=== PATIENT | female | born 1940 | race Hispanic/Latino ===

== ENCOUNTER 2016-12-07 11:05 | Outpatient (CLI) | payer MEDICARE, OTHER ==
--- NOTE | 2016-12-07 11:39 | RAD ---
CHEST TWO VIEWS: History: Dyspnea. Comparison: 03-05-13 FINDINGS: Stable atherosclerosis. Persistent hyperinflation with chronic changes. No pneumothorax. Diffuse bon y demineralization is identified. IMPRESSION: Chronic changes. POS: [facility]
== END 2016-12-07 11:06 | disposition home or self-care (01) ==
LOC: RAD 11:05
PROVIDERS: ATTEND Internal Medicine Pulmonary Disease
DX: R06.00 Dyspnea, unspecified (principal)
CPT/HCPCS: 71020

== ENCOUNTER 2017-02-27 08:00 | Outpatient (CLI) | payer MEDICARE, OTHER | END 2017-02-27 08:01 | disposition home or self-care (01) | LOC: BICMAMMO 08:00 | PROVIDERS: ATTEND Internal Medicine Hematology & Oncology | DX: N63.20 Unspecified lump in the left breast, unspecified quadrant (principal); Z85.3 Personal history of malignant neoplasm of breast | CPT/HCPCS: 77066; G0279 ==

== ENCOUNTER 2017-12-14 13:51 | Emergency (ER) | payer MEDICARE, OTHER ==
--- NOTE | 2017-12-14 15:27 | RAD ---
3 VIEWS SACRUM AND COCCYX: Date: 12/14/17 COMPARISON: None. HISTORY: Fall, trauma, pain. FINDINGS: There is no widening of the sacroiliac joints or the pubic symphysis. There is no displaced fracture or evidence of dislocation. There is atherosclerotic calcification of the abdominal aorta. IMPRESSION: No acute osseous abnormality seen. POS: [facility]
== END 2017-12-14 15:09 | disposition home or self-care (01) ==
LOC: ERS 13:51
DX: M53.3 Sacrococcygeal disorders, not elsewhere classified (principal); E03.9 Hypothyroidism, unspecified; I48.91 Unspecified atrial fibrillation; E11.9 Type 2 diabetes mellitus without complications; E78.5 Hyperlipidemia, unspecified; J45.909 Unspecified asthma, uncomplicated; Z87.891 Personal history of nicotine dependence
CPT/HCPCS: 72220; 93005

== ENCOUNTER 2017-12-27 06:58 | Emergency (ER) | payer MEDICARE, OTHER ==
[2017-12-27 08:09] LABS: #Eosinphils 0.1 thou/uL (0.0-0.7); #Lymphocytes 0.9 thou/uL (1.20-3.40); #Monocytes 0.6 thou/uL (0.11-0.59); #Neutrophils 4.9 thou/uL (1.40-6.50); %Basophils 0.6 % (0.0-1.0); %Eosinophils 2.1 % (0.0-10.0); %Lymphocytes 13.8 % (21.0-51.0); %Monocytes 9.5 % (0.0-10.0); Hemoglobin 10.2 g/dL (12.0-16.0); Mean Corpuscular Hemoglobin 30.2 pg (27.0-31.0); Mean Corpuscular Volume 94.4 fL (78.0-98.0); Mean Platelet Volume 7.6 fL (7.4-10.4); Platelet Count 318 thou/uL (130-400); RBC Distribution Width 15.1 % (11.5-14.5); Red Blood Cell (RBC) Count 3.37 mill/uL (4.20-5.40); White Blood Cell (WBC) Count 6.6 thou/uL (4.8-10.8)
[2017-12-27 08:16] LABS: ALT (SGPT) 16 U/L (8-55); AST (SGOT) 27 U/L (5-34); Albumin 3.4 g/dL (3.4-4.8); Alkaline Phosphatase 89 U/L (40-150); Anion Gap 15 mmol/L (10-20); BUN (Urea Nitrogen) 9 mg/dL (9.8-20.1); Bilirubin, Total 0.5 mg/dL (0.2-1.2); Calc. Creatinine Clearance 0 mL/min (70-130); Carbon Dioxide 23 mmol/L (23-31); Chloride 102 mmol/L (98-107); Estimated GFR-MDRD 87; Globulin 3.7 g/dL (2.4-3.5); Glucose 116 mg/dL (83-110); Potassium 3.7 mmol/L (3.5-5.1); Protein, Total 7.1 g/dL (6.0-8.3); Sodium 136 mmol/L (136-145)
[2017-12-27 08:28] LABS: CKMB 1.8 ng/mL (0-6.6); Troponin I Less than 0.010 ng/mL (< 0.028)
[2017-12-27 08:32] LABS: Bilirubin Negative (Negative); Blood, Urine Negative (Negative); Clarity CLOUDY (Clear); Glucose, Urine (Dipstick) Negative (Negative); Leukocyte Negative (Negative); Nitrite Negative (Negative); Protein, Urine (Dipstick) Negative (Neg-Trace); Urobilinogen 0.2 mg/dL (0.2-1.0)
[2017-12-27 08:36] LABS: Magnesium 1.7 mg/dL (1.6-2.6)
--- NOTE | 2017-12-27 08:46 | RAD ---
FRONTAL VIEW CHEST: Date: 12/27/17 INDICATION: Dyspnea. COMPARISON: 07/16/14 and 05/31/17. FINDINGS: Redemonstration of wedge-shaped opacity of the right hilar region. There are diffuse interstitial opa cities again seen, with hyperinflation of the lungs. Persistent pleural based densities are seen at t he inferior chest bilaterally. Cardiac silhouette is stable appearing. IMPRESSION: 1. Stable chest. 2. Persistent bilateral diffuse parenchymal opacities remain, which may represent chronic interstiti al lung disease/COPD. Superimposed acute component not excluded. There is persistence of a wedge-shap ed density of the right hilar region. A central lesion is not excluded. This may be further assessed with follow-up CT chest with contrast. CODE T. POS: [facility]
== END 2017-12-27 08:45 | disposition home or self-care (01) ==
LOC: ERS 06:58
DX: I48.91 Unspecified atrial fibrillation (principal); E03.9 Hypothyroidism, unspecified; E11.9 Type 2 diabetes mellitus without complications; E78.5 Hyperlipidemia, unspecified; I10 Essential (primary) hypertension; J45.909 Unspecified asthma, uncomplicated; Z87.891 Personal history of nicotine dependence
CPT/HCPCS: 36415; 71045; 80053; 81003; 82553; 83605; 83735; 84484; 85025; 93005

== ENCOUNTER 2017-12-29 23:41 | Emergency (ER) | payer MEDICARE, OTHER ==
[2017-12-30 01:07] LABS: #Eosinphils 0.2 thou/uL (0.0-0.7); #Lymphocytes 0.8 thou/uL (1.20-3.40); #Monocytes 0.7 thou/uL (0.11-0.59); #Neutrophils 4.4 thou/uL (1.40-6.50); %Basophils 0.6 % (0.0-1.0); %Eosinophils 2.9 % (0.0-10.0); %Lymphocytes 13.1 % (21.0-51.0); %Monocytes 11.7 % (0.0-10.0); %Neutrophils 71.7 % (42.0-75.0); Hemoglobin 9.8 g/dL (12.0-16.0); Mean Corpuscular HGB CONC 30.6 g/dL (32.0-36.0); Mean Corpuscular Hemoglobin 28.9 pg (27.0-31.0); Mean Corpuscular Volume 94.5 fL (78.0-98.0); Mean Platelet Volume 7.6 fL (7.4-10.4); Platelet Count 314 thou/uL (130-400); RBC Distribution Width 15.3 % (11.5-14.5); White Blood Cell (WBC) Count 6.1 thou/uL (4.8-10.8)
[2017-12-30 01:28] LABS: ALT (SGPT) 17 U/L (8-55); AST (SGOT) 27 U/L (5-34); Albumin 3.4 g/dL (3.4-4.8); Alkaline Phosphatase 81 U/L (40-150); Anion Gap 10 mmol/L (10-20); BUN (Urea Nitrogen) 12 mg/dL (9.8-20.1); Bilirubin, Total 0.2 mg/dL (0.2-1.2); Calc. Creatinine Clearance 0 mL/min (70-130); Calcium 8.8 mg/dL (7.8-10.44); Carbon Dioxide 30 mmol/L (23-31); Chloride 105 mmol/L (98-107); Estimated GFR-MDRD 85; Globulin 3.3 g/dL (2.4-3.5); Glucose 183 mg/dL (83-110); Potassium 4.2 mmol/L (3.5-5.1); Protein, Total 6.7 g/dL (6.0-8.3); Sodium 141 mmol/L (136-145)
[2017-12-30 01:32] LABS: CKMB 2.1 ng/mL (0-6.6); Troponin I Less than 0.010 ng/mL (< 0.028)
--- NOTE | 2017-12-30 07:42 | RAD ---
CHEST 1 VIEW: Date: HISTORY: Shortness of breath and dyspnea. COMPARISON: 12/27/17. FINDINGS: There is some volume loss in the right middle lobe. Air space opacities are present in left lower lob e. Mild blunting of left costophrenic sulcus. Heart size is enlarged. Lungs are hyperinflated. IMPRESSION: 1. Volume loss right middle lobe. Nonemergent CT of chest is recommended to evaluate for underlying mass. 2. Left basilar opacity and small effusion concerning for infection. POS: [facility]
== END 2017-12-30 03:04 | disposition home or self-care (01) ==
LOC: ERS 23:41
DX: R06.02 Shortness of breath (principal); J44.9 Chronic obstructive pulmonary disease, unspecified; E03.9 Hypothyroidism, unspecified; I48.91 Unspecified atrial fibrillation; E11.9 Type 2 diabetes mellitus without complications; E78.5 Hyperlipidemia, unspecified; I10 Essential (primary) hypertension; J45.909 Unspecified asthma, uncomplicated; Z87.891 Personal history of nicotine dependence
CPT/HCPCS: 36415; 71045; 80053; 82553; 84484; 85025; 93005; 94640; J7620

== ENCOUNTER 2018-01-08 10:33 | Outpatient (CLI) | payer MEDICARE, OTHER ==
[2018-01-08] MEDS ORDERED: Iopamidol 370 76% 100 ML VIAL ONE (11:01)
--- NOTE | 2018-01-08 14:09 | CT ---
POSTCONTRAST CHEST CT: HISTORY: Dyspnea. Productive cough. COPD. Status post chemotherapy. Previous lumpectomy. FINDINGS: CHEST CT: Enlarged right paratracheal lymph node measuring 1.6 x 1.2 cm. Enlarged precarinal lymph node measur ing 1.6 x 1.6 cm. Enlarged right hilar lymph node measuring 1.1 x 1.2 cm. No mediastinal hematoma. Heart size is within normal limits. No significant pericardial fluid. There are extensive coronary calcifications. Atherosclerosis of a nonaneurysmal aorta is identified. The gallbladder is surgically absent. The visualized upper solid organs are unremarkable. Small lef t-sided pleural effusion. There are patchy ground-glass opacities along with tree-in-bud opacities a nd ground-glass nodules scattered throughout the lung parenchyma. Findings are presumed to be on the basis of an atypical infection. There are areas of pleural-based opacities in the left upper lobe. Regional Safety Manager pleural-based opacity measures 0.8 x 2.9 cm. There is consolidation with air broncho grams involving the middle lobe and lingula. Findings may represent post treatment change. There ar e nodular opacities in the right lung measuring 0.7 x 1.0 cm, 0.5 x 0.6 cm, and a more ill-defined op acity in the right lung measuring 0.6 x 1.0 cm. . There appears to be mild thickening of the bronch i throughout the lung parenchyma. Correlate for any reactive change of the bronchi. Ill-defined opacity in the right lower lobe measuring j0.6 x 0.5 cm. No lytic or blastic lesions in the osseous structures IMPRESSION: 1. Diffuse nodular opacities along with ground-glass nodular opacities in the lung parenchym. Addit ional tree-in-bud opacities which may represent atypical infection. Findings favor atypical infectio n. Follow up imaging to resolution. 2. There appear to be chronic changes involving the middle lobe and lingula. POS: [facility]
== END 2018-01-08 10:34 | disposition home or self-care (01) ==
LOC: CT 10:33
PROVIDERS: ATTEND Internal Medicine
DX: R93.89 Abnormal findings on diagnostic imaging of other specified body structures (principal); R91.8 Other nonspecific abnormal finding of lung field
CPT/HCPCS: 71260

== ENCOUNTER 2018-01-23 02:13 | Inpatient (IN) | payer MEDICARE, OTHER ==
[2018-01-23 02:45] LABS: #Eosinphils 0.2 thou/uL (0.0-0.7); #Lymphocytes 0.8 thou/uL (1.20-3.40); #Monocytes 0.6 thou/uL (0.11-0.59); #Neutrophils 4.5 thou/uL (1.40-6.50); %Basophils 0.8 % (0.0-1.0); %Eosinophils 3.2 % (0.0-10.0); %Monocytes 10.4 % (0.0-10.0); %Neutrophils 72.6 % (42.0-75.0); Hemoglobin 11.2 g/dL (12.0-16.0); Mean Corpuscular HGB CONC 31.6 g/dL (32.0-36.0); Mean Corpuscular Hemoglobin 29.8 pg (27.0-31.0); Mean Corpuscular Volume 94.4 fL (78.0-98.0); Mean Platelet Volume 7.6 fL (7.4-10.4); Platelet Count 327 thou/uL (130-400); Red Blood Cell (RBC) Count 3.75 mill/uL (4.20-5.40); White Blood Cell (WBC) Count 6.2 thou/uL (4.8-10.8)
[2018-01-23] MEDS ORDERED: methylPREDNISolone Sod Succ/PF 125 MG/2 ML VIAL ONE (02:47)
[2018-01-23 03:08] LABS: ALT (SGPT) 28 U/L (8-55); AST (SGOT) 33 U/L (5-34); Albumin 3.3 g/dL (3.4-4.8); Alkaline Phosphatase 75 U/L (40-150); Anion Gap 8 mmol/L (10-20); BUN (Urea Nitrogen) 10 mg/dL (9.8-20.1); Bilirubin, Total 0.2 mg/dL (0.2-1.2); CK (CPK) 91 U/L (29-168); Calc. Creatinine Clearance 0 mL/min (70-130); Calcium 9.1 mg/dL (7.8-10.44); Carbon Dioxide 32 mmol/L (23-31); Chloride 102 mmol/L (98-107); Estimated GFR-MDRD 70; Globulin 3.3 g/dL (2.4-3.5); Glucose 130 mg/dL (83-110); Lipase 39 U/L (8-78); Protein, Total 6.6 g/dL (6.0-8.3); Sodium 138 mmol/L (136-145)
[2018-01-23 03:15] LABS: CKMB 3.1 ng/mL (0-6.6); Troponin I 0.023 ng/mL (< 0.028)
[2018-01-23] MEDS ORDERED: Azithromycin 500 MG VIAL ONE (03:51)
[2018-01-23] MEDS ORDERED: cefTRIAXone\\ROCEPHIN 1 GM VIAL ONE (03:51)
[2018-01-23] MEDS ORDERED: Magnesium 2 GM/50 ML BAG (IN WATER) ONE (05:27)
[2018-01-23 05:52] LABS: Actual Bicarbonate (HCO3a) 25.7 mEq/L (22-28); Analyzer IN Cardio ER; Base Excess (BEa) -0.1 mEq/L (-2.0 to +3.0); CO2 Tension 47.1 mmHg (35.0-45.0); Calcium, Ionized 1.15 mmol/L (1.12-1.30); Carboxyhemoglobin (COHb) 0.3 gm% (0.0-3.0); Hemoglobin (Hb) 10.7 g/dL (12.0-16.0); O2 Tension (PaO2) 78.4 mmHg (> 70.0); Potassium - ABG Lab 3.77 mmol/L (3.70-5.30); pH, Arterial 7.36 (7.35-7.45)
[2018-01-23 05:53] LABS: ALV-art Gradient 33.845 (0-20); Puncture Site RRA
[2018-01-23] MEDS ORDERED: Lorazepam 2 MG/ML VIAL ONE (07:22)
[2018-01-23] MEDS ORDERED: Acetaminophen 325 MG TAB PO PRN (07:24)
[2018-01-23] MEDS ORDERED: Ondansetron PF 4 MG/2 ML Vial IVP PRN (07:24)
--- NOTE | 2018-01-23 08:32 | RAD ---
SINGLE VIEW CHEST: Date: 01/23/18 COMPARISON: 12/30/17. HISTORY: Dyspnea. FINDINGS: Single view of the chest shows a normal sized cardiomediastinal silhouette with atherosclerotic calci fications in the aorta. Increased interstitial lung markings are present. Hyperexpansion of lungs may be secondary to COPD. No significant change has occurred compared to the prior examination. IMPRESSION: Stable examination. POS: [facility]
--- NOTE | 2018-01-23 08:46 | HP ---
PRIMARY CARE PROVIDER: Brooke Baca MD COMMERCIAL ADMINISTRATOR: Dain Chacon MD DRUG WORKER: Sony Dinero MD HISTORY OF PRESENT ILLNESS: The patient is referred to [email or web address] Service by [facility] for shortness of breath. The patient with a history of COPD, has been short of breath, recently it became suddenly worse. She denies any chest pain. No fever or chills. She was noted to have an abnormal chest x-ray. A CT done of the chest revealed what was probably an atypical infection. She was put on Zithromax, which she is currently on. She has some cough, some wheezing. She is being admitted. PAST MEDICAL HISTORY: COPD; atrial fibrillation, post ablation that was not successful; chronic anticoagulation; hypertension; dyslipidemia; hypothyroidism; breast cancer diagnosed in 2011, currently on no therapy. CURRENT MEDICATIONS: 1. Symbicort. 2. Ventolin inhaler q.4 hours p.r.n. 3. Zithromax 500 mg a day. 4. Atorvastatin 40 mg a day. 5. Levothyroxine 75 mcg a day. 6. Xarelto 20 mg once a day. 7. Losartan 100 mg a day. 8. Singulair 10 mg a day. ALLERGIES: ALLERGIC TO BACTRIM. PAST SURGICAL HISTORY: Lumpectomy of left breast, cholecystectomy, hysterectomy, and atrial fibrillation with unsuccessful ablation. SOCIAL HISTORY: Multiple members with diabetes and hypertension. She has a sister with carcinoma of the lung. SOCIAL HISTORY: . Full code status. No tobacco. No alcohol. The power of united states attorney was designated. REVIEW OF SYSTEMS: GENERAL: No fevers, sweats, chills, headaches, or dizziness. EYES: No double vision, blurred vision, or flashing of lights. EARS, NOSE, AND THROAT: No ear pain or drainage, nasal bleeding, or trouble swallowing. CARDIAC: No chest pain, orthopnea, or paroxysmal nocturnal dyspnea. RESPIRATORY: See present illness. GASTROINTESTINAL: No nausea, vomiting, abdominal pain, diarrhea, or constipation. GENITOURINARY: No hematuria, dysuria, or nocturia. MUSCULOSKELETAL: No pain or swelling in her arms or legs. NEUROLOGIC: No strokes, seizures, or focal weakness. PSYCHIATRIC: No anxiety or depression. SKIN: No bruising, bleeding, or rash. HEME/LYMPH: No tender or swollen lymph nodes in the axilla, inguinal, or cervical area. PHYSICAL EXAMINATION: GENERAL: She is alert, on BiPAP. Part of the history is given by family members because of the difficult with the BiPAP. VITAL SIGNS: Blood pressure 128/80, pulse 96, respirations 32, pulse ox 94% on BiPAP, temperature of 98.5. HEAD, EYES, EARS, NOSE, AND THROAT: Pupils are equal, round, and reactive to light. Extraocular movements are intact. Sclerae are white. Tympanic membranes are clear. Nose is clear. Oral mucous membranes are wet. NECK: Supple without jugular venous distention, adenopathy, or thyromegaly. CHEST: Has hyperresonance. Diminished breath sounds. Scattered rhonchi. HEART: Irregularly irregular rhythm. First and second heart sounds are variable. No murmurs. ABDOMEN: Soft. Bowel sounds are normal. There is no hepatosplenomegaly. No mass. No rebound. No bruits. EXTREMITIES: Reveal no cyanosis, clubbing, or edema. Pulses; carotid, radial, femoral, and dorsalis pedis pulses are palpable and symmetric. SKIN: Warm and dry without bruises or rash. HEME/LYMPH: No tender or swollen lymph nodes in the axilla, inguinal, or cervical area. NEUROLOGIC: Cranial nerves II through XII are intact. Moves all extremities. Sensation is intact. IMAGING STUDIES: Chest x-ray, hyperinflation, marked scaring. Review of this x-ray with old x-ray was performed. EKG, irregularly irregular rhythm. No acute ST-T abnormality. The patient is in atrial fibrillation reviewed. LABORATORY DATA: Blood gas; pH of 7.36, CO2 of 47, O2 of 78.4. D-dimer was normal. Comprehensive metabolic profile shows a CO2 of 32, blood pressure of 130, otherwise unremarkable. Troponin and BNP are normal, I do not know why they were done. CBC; white count 6.2, hemoglobin 11.2, and platelet count 327,000. ADMITTING DIAGNOSES: 1. Acute exacerbation of chronic obstructive pulmonary disease. 2. Acute on chronic respiratory failure with hypercapnia and hypoxemia. 3. Atypical pneumonia. 4. Atrial fibrillation. 5. Chronic anticoagulation. 6. Hypertension. 7. Dyslipidemia. 8. Hypothyroidism, on therapy. PLAN: Admit to [facility] on BiPAP. O2 to keep sat greater than 92%. Continue Zithromax for atypical pneumonia, nebulizers q.3 hours p.r.n. Continue Symbicort. We will probably substitute Dulera. Continue selected home medicines. Consult Dr. Chacon. Job ID: [id number]
[2018-01-23] MEDS ORDERED: Non-Formulary Item 1 EACH (Budesonide-Formoterol [Symbicort 160-4.5] 2 PUFF) INH SCH (09:00)
[2018-01-23] MEDS ORDERED: Azithromycin 250 MG TAB ONE (09:24)
[2018-01-23] MEDS ORDERED: Enoxaparin Sodium 40 MG/0.4 ML SYRINGE ONE (09:24)
[2018-01-23] MEDS: methylPREDNISolone Sod Succ/PF 125 MG/2 ML VIAL IVP SCH ×2 (13:54→17:44)
[2018-01-23] MEDS: Atorvastatin Calcium 20 MG TAB PO SCH (13:55)
[2018-01-23] MEDS: Enoxaparin Sodium 40 MG/0.4 ML SYRINGE SC SCH (13:55)
[2018-01-23] MEDS: Azithromycin 250 MG TAB PO SCH (13:55)
--- NOTE | 2018-01-23 14:32 | PDOC.EVN ---
Event Note - Event Note Event Note: in ED, atrial fib rate increased . pt started on iv diltizem
--- NOTE | 2018-01-23 15:32 | CON ---
DATE OF CONSULTATION: SUBJECTIVE: Shabbir Beard is a 77-year-old female, who was seen in the ER with shortness of breath, cough, unresponsive to her usual home medication that includes Symbicort 160 twice a day and Ventolin inhaler. She is coughing up some yellow sputum, and she will be started on Zithromax 250 once a day for two weeks. X-ray taken last night shows stable bilateral chronic changes with large area of right middle lobe bronchiectatic changes. She was placed on BiPAP, to which she states she has felt better this morning. She is much more awake and responsive. PAST MEDICAL HISTORY: Chronic bronchitis, COPD, bronchiectasis, chronic asthma, cardiac arrhythmias, coronary artery disease, diabetes, hypertension, breast cancer, hypothyroidism. PAST SURGICAL HISTORY: Left breast lumpectomy followed by radiation, hysterectomy. MEDICATIONS: List of medicine from home includes losartan 100 once a day, Synthroid 88, Prozac 40, Cardizem CD 180, atorvastatin 20, Arimidex 1 mg a day. ALLERGIES: SULFA. TOBACCO: Former smoker. REVIEW OF SYSTEMS: Ten-point negative. PHYSICAL EXAMINATION: VITAL SIGNS: Blood pressure is 120/80, respirations 20, pulse 80, and saturations 98%. GENERAL: She is awake, alert, and responsive. CHEST: Bilateral rhonchi and crackles. CARDIAC: Normal S1 and S2. No gallops. ABDOMEN: Soft without any mass. EXTREMITIES: No edema. DIAGNOSTIC DATA: CT done about two weeks ago shows evidence of bilateral bronchiectatic changes. LABORATORY DATA: Otherwise shows white count of 6000, hemoglobin and hematocrit of 11 and 35. Platelet count is normal. PO2 is 78, pCO2 is 40, pH 7.36. IMPRESSION: 1. Acute on chronic respiratory failure, chronic bronchitis, bronchiectasis. 2. Atrial fibrillation. 3. Breast cancer. PLAN: Discontinue BiPAP. Steroids, neb treatments, empiric antibiotics. Consider diagnostic therapeutic bronchoscopy. Consultation note, 70 minutes, 50% on direct patient care. Job ID: [id number]
[2018-01-23] MEDS: Mometasone/Formoterol 120 PUFF INHALER INH SCH (18:39)
[2018-01-23] MEDS ORDERED: Lorazepam 2 MG/ML VIAL SLOW IVP SCH (23:45)
[2018-01-24] MEDS ORDERED: diphenhydrAMINE 50 MG/ML VIAL IVP SCH (01:10)
[2018-01-24 05:06] LABS: #Lymphocytes 0.2 thou/uL (1.20-3.40); #Monocytes 0.2 thou/uL (0.11-0.59); #Neutrophils 12.7 thou/uL (1.40-6.50); %Eosinophils 0.3 % (0.0-10.0); %Lymphocytes 1.7 % (21.0-51.0); %Monocytes 1.6 % (0.0-10.0); %Neutrophils 96.4 % (42.0-75.0); Hemoglobin 10.1 g/dL (12.0-16.0); Mean Corpuscular HGB CONC 31.4 g/dL (32.0-36.0); Mean Corpuscular Hemoglobin 29.8 pg (27.0-31.0); Mean Platelet Volume 8.1 fL (7.4-10.4); Platelet Count 336 thou/uL (130-400); RBC Distribution Width 15.1 % (11.5-14.5); White Blood Cell (WBC) Count 13.2 thou/uL (4.8-10.8)
[2018-01-24 05:30] LABS: Anion Gap 11 mmol/L (10-20); BUN (Urea Nitrogen) 11 mg/dL (9.8-20.1); Calc. Creatinine Clearance 23 mL/min (70-130); Calcium 8.8 mg/dL (7.8-10.44); Carbon Dioxide 25 mmol/L (23-31); Chloride 104 mmol/L (98-107); Estimated GFR-MDRD 78; Glucose 242 mg/dL (83-110); Potassium 4.6 mmol/L (3.5-5.1); Sodium 135 mmol/L (136-145)
[2018-01-24] MEDS: cefTRIAXone\\ROCEPHIN 1 GM in Sodium Chloride 0.9% 100 ML IVPB SCH (06:32)
[2018-01-24] MEDS: Mometasone/Formoterol 120 PUFF INHALER INH SCH ×2 (07:14→19:27)
[2018-01-24] MEDS: Enoxaparin Sodium 40 MG/0.4 ML SYRINGE SC SCH (09:32)
[2018-01-24] MEDS: Azithromycin 250 MG TAB PO SCH (09:32)
[2018-01-24] MEDS: Atorvastatin Calcium 20 MG TAB PO SCH (09:32)
[2018-01-24] MEDS ORDERED: Lidocaine 4% PF 5 ML AMP NEB SCH (10:00)
[2018-01-24] MEDS ORDERED: Haloperidol Lactate 5 MG/ML VIAL SLOW IVP PRN (10:51)
--- NOTE | 2018-01-24 10:53 | PDOC.PN ---
- Subjective Encounter Start Date: 01/24/18 Encounter Start Time: 10:52 Subjective: confused, agitated - Objective Resuscitation Status - Order Detail: 01/23/18 07:21 Resuscitation Status Routine Resuscitation Status: FULL: Full Resuscitation MAR Reviewed: Yes Vital Signs & Weight: Vital Signs (12 hours) Temp Pulse Resp BP Pulse Ox 01/24/18 10:49 98.2 F 118 H 20 151/82 H 92 L 01/24/18 07:52 97 01/24/18 07:22 98.9 F 98 18 164/86 H 92 L 01/24/18 07:19 94 L 01/24/18 07:12 97 20 92 L 01/24/18 04:00 98.1 F 97 17 151/73 H 96 01/24/18 00:50 98 22 H 92 L 01/24/18 00:00 98.4 F 96 15 139/79 90 L Weight Weight 104 lb 7 oz Result Diagrams: 01/24/18 04:36 01/24/18 04:36 Phys Exam - Physical Examination Neck: no JVD hyperresonant, decreased BS, rhonchi Cardiovascular: no significant murmur, irregular Gastrointestinal: soft, positive bowel sounds Musculoskeletal: no edema, edema present Dx/Plan (1) Acute respiratory failure with hypoxia Code(s): J96.01 - ACUTE RESPIRATORY FAILURE WITH HYPOXIA Status: Acute (2) PNA (pneumonia) Code(s): J18.9 - PNEUMONIA, UNSPECIFIED ORGANISM Status: Acute Qualifiers: Pneumonia type: due to unspecified organism (3) COPD exacerbation Code(s): J44.1 - CHRONIC OBSTRUCTIVE PULMONARY DISEASE W (ACUTE) EXACERBATION Status: Acute (4) Atrial fibrillation with rapid ventricular response Code(s): I48.91 - UNSPECIFIED ATRIAL FIBRILLATION Status: Acute - Plan cont iv antibx -: cont nebs, steroids -: bronchoscopy tomorrow -: iv diltiazem for rate control * .
--- NOTE | 2018-01-24 11:29 | PRG ---
DATE OF SERVICE: 01/24/2018 SUBJECTIVE: This morning, she is better. She is less short of breath. OBJECTIVE: VITAL SIGNS: Sats 97% on 3 liters, respirations 18, blood pressure 164/86. CHEST: Reveals extensive rhonchi and crackles. CARDIAC: Normal S1 and S2. No gallops. ABDOMEN: Soft. LABORATORY DATA: White count 13,000, H and H are 10 and 32, and platelet count is normal. So far, cultures are negative. IMPRESSION: 1. Chronic obstructive pulmonary disease exacerbation and bronchitis. 2. Supraventricular tachycardia. PLAN: Continue antibiotics, neb treatments, and steroids. Consider a diagnostic therapeutic bronchoscopy in the next 24 to 48 hours, if she remains stable. I have discussed with the family. Prognosis remains guarded. Job ID: [id number]
[2018-01-24] MEDS: Sodium Chloride 0.9% 1,000 ML IV SCH (11:40)
[2018-01-24] MEDS: ALPRAZolam 0.25 MG TAB PO PRN ×2 (12:45→21:01)
[2018-01-24] MEDS: Diltiazem HCl 125 MG, Admixture Fee 1 EACH in Sodium Chloride 0.9% 100 ML IVPB SCH (13:21)
--- NOTE | 2018-01-24 14:34 | PQF ---
DATE: 01-24-18 ATTN: DR. TRES JOAQUIN Please exercise your independent, professional judgment in responding to the clarification form. Clinical indicators are provided on the bottom of this form for your review Please check appropriate box(s) to clarify if the following diagnosis has been ruled in or ruled out: SEPSIS [ ] Ruled in diagnosis [ ] Continue to treat [ ] Resolved [ ] Ruled out diagnosis [ ] Other diagnosis [ x] Unable to determine inadequate criteria for sepsi documented In addition, please specify: Present on Admission (POA): [ ] Yes [ ] No [ ] Unable to determine For continuity of documentation, please document condition throughout progress notes and discharge summary. Thank You. CLINICAL INDICATORS - SIGNS / SYMPTOMS / LABS ER DX: MULTILOBAR PNEUMONIA, COPD EXACERBATION, SEPSIS H&P: ACUTE EXACERBATION, ACUTE ON CHRONIC RESPIRATORY FAILURE WITH HYPERCAPNIA AND HYPOXEMIA, ATYPICAL PNEUMONIA WBC: 01-24-18: 13.2 PULSE: ER: 109, 107, 100, 101, 116, 114, 119 RR: ER: 40, 27, 31, 32, 36, 29 RISK FACTORS: ER DX: MULTILOBAR PNEUMONIA, COPD EXACERBATION, SEPSIS TREATMENTS: ER: AZITHROMYCIN, VANCOMYCIN, CEFTRIAXONE IVF (This form is maintained as a part of the permanent medical record) 2014 [employer]. All Rights Reserved CARMEN [email or web address] Office: [phone] [facility]IAL HOSPITALGirma
[2018-01-24 16:45] VITALS: BMI 18.5
[2018-01-25] MEDS: cefTRIAXone\\ROCEPHIN 1 GM in Sodium Chloride 0.9% 100 ML IVPB SCH (05:29)
[2018-01-25] MEDS ORDERED: Levothyroxine Sodium 75 MCG TAB PO SCH (06:00)
[2018-01-25] MEDS: Mometasone/Formoterol 120 PUFF INHALER INH SCH (08:07)
[2018-01-25] MEDS: Sodium Chloride 0.9% 1,000 ML IV SCH (08:35)
[2018-01-25] MEDS ORDERED: Fentanyl 100 MCG/2 ML VIAL ONE ×2 (08:38→08:47)
[2018-01-25] MEDS ORDERED: Midazolam HCl 2 mg/2 ml Vial ONE (08:38)
[2018-01-25] MEDS ORDERED: Lidocaine 1% (PF) 30 ML VIAL ONE (08:46)
[2018-01-25] MEDS ORDERED: Enoxaparin Sodium 40 MG/0.4 ML SYRINGE SC SCH (09:00)
[2018-01-25] MEDS ORDERED: Losartan 25 MG TAB PO SCH (09:00)
[2018-01-25 10:40] LABS: Actual Bicarbonate (HCO3a) 31.6 mEq/L (22-28); Base Excess (BEa) -0.4 mEq/L (-2.0 to +3.0); Calcium, Ionized 1.24 mmol/L (1.12-1.30); Carboxyhemoglobin (COHb) 0.9 gm% (0.0-3.0); Hemoglobin (Hb) 11.3 g/dL (12.0-16.0); O2 Tension (PaO2) 70.9 mmHg (> 70.0); Potassium - ABG Lab 5.13 mmol/L (3.70-5.30)
--- NOTE | 2018-01-25 10:40 | PDOC.PN ---
- Subjective Encounter Start Date: 01/25/18 Encounter Start Time: 10:38 Subjective: post bronchoscopy, unresponsive - Objective Resuscitation Status - Order Detail: 01/23/18 07:21 Resuscitation Status Routine Resuscitation Status: FULL: Full Resuscitation MAR Reviewed: Yes Vital Signs & Weight: Vital Signs (12 hours) Temp Pulse Resp BP Pulse Ox 01/25/18 08:07 93 L 01/25/18 08:02 93 20 93 L 01/25/18 08:00 95 01/25/18 07:24 97.4 F L 100 20 135/50 L 96 01/25/18 04:00 97.5 F L 95 22 H 128/70 94 L 01/25/18 00:29 83 16 100 01/25/18 00:00 97.4 F L 88 23 H 100/47 L 100 Weight Admit Weight 104 lb 6.4 oz Weight 104 lb 7 oz I&O: 01/24/18 01/25/18 01/26/18 06:59 06:59 06:59 Intake Total 770 Output Total 0 Balance 770 Result Diagrams: 01/24/18 04:36 01/24/18 04:36 Phys Exam - Physical Examination Neck: no JVD rhonchi, wheezes Cardiovascular: no significant murmur, irregular Gastrointestinal: soft, positive bowel sounds Musculoskeletal: no edema Dx/Plan (1) Acute respiratory failure with hypoxia Code(s): J96.01 - ACUTE RESPIRATORY FAILURE WITH HYPOXIA Status: Acute (2) PNA (pneumonia) Code(s): J18.9 - PNEUMONIA, UNSPECIFIED ORGANISM Status: Acute Qualifiers: Pneumonia type: due to unspecified organism (3) COPD exacerbation Code(s): J44.1 - CHRONIC OBSTRUCTIVE PULMONARY DISEASE W (ACUTE) EXACERBATION Status: Acute (4) Atrial fibrillation with rapid ventricular response Code(s): I48.91 - UNSPECIFIED ATRIAL FIBRILLATION Status: Acute - Plan stat ABG, call ground operations crew member -: pH 7.0, pO2 100 -: BIPAP, pulmonology to see * .
[2018-01-25 10:44] LABS: CO2 Tension 105.2 mmHg (35.0-45.0); Puncture Site RRA
--- NOTE | 2018-01-25 10:48 | PDOC.EVN ---
Event Note - Event Note Event Note: DX- acute respiratory failure, combined hypercapnia, hypoxemia
[2018-01-25 10:50] VITALS: BP 149/62; TEMP 98
[2018-01-25] MEDS: Diltiazem HCl 125 MG, Admixture Fee 1 EACH in Sodium Chloride 0.9% 100 ML IVPB SCH (11:16)
[2018-01-25] MEDS ORDERED: Morphine 4 MG/ML VIAL SLOW IVP PRN (12:00)
--- NOTE | 2018-01-25 12:28 | PRG ---
DATE OF SERVICE: SUBJECTIVE: This morning she became progressively more lethargic. Repeat blood gas shows a PO2 of 70, pCO2 of 105.2, and a pH of 7.10. Bicarb was 31. The patient 's family were called to the room and extensive discussions were done. She has jhdgg-fl-twmstno respiratory failure. There are several sons and daughters in the room. They all said that the patient is a DNR, she does not want to be intubated, she did not ever want to be placed on life support. We are in the process of calling palliative care team to assess the situation. OBJECTIVE: On the BiPAP, she became somewhat more arousable, though still lethargic, still encephalopathic. VITAL SIGNS: Sats of barely 90 on BiPAP, respirations 30, blood pressure 140/ 80. CHEST: Decreased breath sounds. Bilateral rhonchi. CARDIAC: Sinus tachycardia. ABDOMEN: Soft. IMPRESSION: 1. Respiratory failure. 2. End-stage chronic obstructive pulmonary disease. 3. Chronic bronchitis. 4. Bronchiectasis. 5. DNR as per the family's wishes. 6. DC lab that was ordered. Job ID: [id number] [facility]
[2018-01-25] MEDS: Azithromycin 250 MG TAB PO SCH (12:58)
[2018-01-25] MEDS: Atorvastatin Calcium 20 MG TAB PO SCH (12:58)
[2018-01-25] MEDS ORDERED: Rivaroxaban 10 MG TAB PO SCH (13:00)
--- NOTE | 2018-01-25 14:21 | RAD ---
PORTABLE AP CHEST RADIOGRAPH: Date: 01-25-18 History: Respiratory failure. Comparison: 01-23-18 FINDINGS: There are pleural and parenchymal opacities at the right lung base, likely related to right lower lob e pneumonia with associated small right pleural effusion. There is also suggestion of increased densi ty at the left lung base, and the left hemidiaphragm is not well seen which may be related to either overlying soft tissue density or possibly volume loss or infiltrate at the right lung base. Parenchym al changes within each perihilar region are seen which may be chronic in origin. Vascular calcificati ons are seen in the thoracic aorta. Scattered chronic lung changes are present with evidence of remot e left sided rib fractures. IMPRESSION: 1. Right lower lobe pneumonia with associated small right pleural effusion. 2. Question of patchy opacity at the left lung base which may also be related to infectious process w ith associated small left pleural effusion. 3. Chronic lung changes including wedge shaped area of airspace opacity in the right hilar region, al so seen on CT exam of 01-08-18. 4. Remote left sided rib fractures. 5. Follow up to resolution of the right lower lobe pneumonia is recommended. POS: [facility]
[2018-01-25] MEDS: Morphine 4 MG/ML VIAL SLOW IVP PRN ×2 (14:35→16:41)
[2018-01-25] MEDS ORDERED: Lorazepam 2 MG/ML VIAL ONE (16:35)
[2018-01-25] MEDS ORDERED: Lorazepam 2 MG/ML VIAL SLOW IVP SCH (17:00)
--- NOTE | 2018-01-26 06:16 | DIS ---
DATE OF ADMISSION: 01/23/2018 DATE OF DISCHARGE: 01/25/2018 TRANSFER OF CARE/ NOTE PRIMARY CARE PROVIDER: Brooke Baca MD on 01/25/2018 at 5:30 p.m. roughly. FINAL DIAGNOSES: Acute respiratory failure with hypercapnia and hypoxia; pneumonia, atypical; chronic obstructive pulmonary disease exacerbation; atrial fibrillation with rapid ventricular response. CONSULTATIONS: Dr. Dain Chacon, Pulmonology. PROCEDURES: Bronchoscopy on 01/25/2018. HOSPITAL COURSE: The patient was admitted to the hospital to [facility] Service through [facility] with shortness of breath. She had a history of COPD, became suddenly worse. Denied chest pain. She was noted to have abnormal chest x-ray. CT scan of the chest revealed probable atypical infection. She was on Zithromax at that time. She had a history of COPD, atrial fibrillation, hypertension, dyslipidemia, hypothyroidism. On admission, she had pH of 7.36, CO2 of 47, O2 of 78.4, modestly elevated with normal white count of 6.2, hemoglobin 11.2, platelet count 327,000. The patient was admitted to the [facility] on BiPAP, which she was rapidly weaned from. Dr. Chacon was consulted. She was placed on p.o. Zithromax, IV ceftriaxone. She required IV diltiazem for control of the rapid ventricular response of her atrial fibrillation. She was treated with steroids, DuoNeb q.6 hours, and p.r.n. Dulera. She was continued on her Xarelto. Admitting laboratory previously mentioned in followup showed a white count of 13.2, consistent with steroid dose she was on; hemoglobin 10.1; platelet count of 336,000. Initial comp metabolic profile had a modestly elevated CO2 of 32. Blood sugar 130 was otherwise normal. Troponin was normal. BNP was normal. On the morning of 01/25/2018, she was alert and talking. I was called about 10 o'clock in the morning that she had become unresponsive. She had a change in her respiratory pattern. Stat ABG was obtained, which revealed a pH of 7.10, pCO2 of 105, O2 saturation of 70.9. She was started on BiPAP. Dr. Chacon was called. He spoke with the family. The patient had previously been full code, but the family had been discussing changing her resuscitation status. After discussion with Dr. Chacon, she was made do not resuscitate by himself. The patient was continued on BiPAP. She was minimally responsive at times. However, eventually her respiratory pattern became agonal and somewhere around 5:30 in the p.m. on 01/25/2018, she ceased respirations. No autopsy was requested. Body is being released to home. Job ID: [id number]
--- NOTE | 2018-01-26 06:47 | OP ---
DATE OF PROCEDURE: 01/25/2018 PROCEDURE: Bronchoalveolar lavage. INDICATION: Bilateral bronchiectasis, abnormal chest x-ray, rule out atypical TB, mycobacterium avium complex. DESCRIPTION OF PROCEDURE: After informed consent, the patient was monitored at the bedside. No sedation was given. She was given a Cetacaine spray. The video flexible Olympus bronchoscope b2 was used. A bite block was placed in for and bronchoscope was passed in_ the trachea. Nallely was sharp. No endobronchial obstruction or blood was seen. Right lung was inspected initially. Right upper, right middle lobe, right lower lobe, no endobronchial obstruction or blood was seen. This was lavaged with normal saline, total of 40 mL. The left lung after this also was visualized. Left upper and left lower lobe without any endobronchial disease. It was also lavaged with normal saline 40 mL. Washings were sent for AFB smear and culture, fungal smear and culture, routine Gram stain, C and S. the patient overall tolerated the procedure well. Job ID: [id number] [facility]
[2018-01-26] MEDS ORDERED: Rivaroxaban 10 MG TAB PO SCH (09:00)
--- NOTE | 2018-01-27 13:03 | EKG ---
Test Reason : Blood Pressure : / mmHG Vent. Rate : 105 BPM Atrial Rate : 105 BPM P-R Int : 120 ms QRS Dur : 070 ms QT Int : 332 ms P-R-T Axes : 087 049 078 degrees QTc Int : 438 ms Sinus tachycardia with Premature supraventricular complexes Indeterminate axis RSR' or QR pattern in V1 suggests right ventricular conduction delay Anteroseptal infarct , age undetermined Abnormal ECG Confirmed by LORENE KIMBLE ([id number]), film editor LEONARDO ELLIOTT ([id number]) on 01/27/2018 1:03:19 PM Referred By: Confirmed By:LORENE KIMBLE
[2018-01-29 14:14] LABS: Fungus Stain Final report (.); Fungus Stain Result 1 Yeast observed (.)
[2018-02-22 06:12] LABS: Fungus Culture Final report (.)
== END 2018-01-25 17:17 | disposition expired | DRG 166 ==
LOC: ERS 02:13 → ERHOLD 06:06 → IMCU/EMU 13:42
PROVIDERS: ADMIT Internal Medicine; ATTEND Internal Medicine
PROC: 5A09457 Assistance with Respiratory Ventilation, 24-96 Consecutive Hours, Continuous Positive Airway Pressure (ICD-10-PCS; 2018-01-23)
PROC: 0B9M8ZX Drainage of Bilateral Lungs, Via Natural or Artificial Opening Endoscopic, Diagnostic (ICD-10-PCS; principal; 2018-01-25)
DX: J44.0 Chronic obstructive pulmonary disease with (acute) lower respiratory infection (principal); J15.9 Unspecified bacterial pneumonia; J96.21 Acute and chronic respiratory failure with hypoxia; J96.22 Acute and chronic respiratory failure with hypercapnia; I47.1 Supraventricular tachycardia; J44.1 Chronic obstructive pulmonary disease with (acute) exacerbation; I48.91 Unspecified atrial fibrillation; Z79.01 Long term (current) use of anticoagulants; E78.5 Hyperlipidemia, unspecified; I10 Essential (primary) hypertension; E03.9 Hypothyroidism, unspecified; Z66 Do not resuscitate; E11.9 Type 2 diabetes mellitus without complications; I25.10 Atherosclerotic heart disease of native coronary artery without angina pectoris; Z79.51 Long term (current) use of inhaled steroids; Z79.52 Long term (current) use of systemic steroids
CPT/HCPCS: 36415; 71045; 80048; 80053; 82550; 82553; 82805; 83605; 83690; 83880; 84484; 85025; 85379; 87040; 87070; 87102; 87116; 87205; 87206; 87804; 93005; 94640; 94660; 94760; 96361; 96365; 96366; 96367; 96368; 96372; 96375; 96376; 99152; J0456; J0696; J1200; J1630; J1650; J2001; J2060; J2250; J2270; J2920; J2930; J3010; J3370; J7050; J7620